=== PATIENT | female | born 1985 | race Caucasian/White ===

== ENCOUNTER 2017-06-12 17:39 | Emergency (ER) | payer BC, OTHER ==
--- NOTE | 2017-06-12 17:58 | PDOC ---
Rapid Medical Evaluation Time Seen by Provider: 06/12/17 17:55 Medical Evaluation: Allergies Allergy/AdvReac Type Severity Reaction Status Date / Time No Known Allergies Allergy Verified 02/08/13 08:58 06/12/17 17:56 32 year old female with IBS and anxiety/panic disorder presenting with dizziness /lightheadedness, nausea, headache, and diarrhea since morning. On letrozole for fertility (day #5). V/s unremarkable -Basic labs -To Main ED for further evaluation
[2017-06-12 17:59] VITALS: BP 142/94; PULSE 86; TEMP 98.2; BMI 41.1
[2017-06-12 19:03] LABS: BASO % 2.4 % (0-2.0); EOS % 0.8 % (0-4.5); HEMATOCRIT 34.8 % (32.4-45.2); LYMPH % 35.1 % (8-40); MCHC 31.7 g/dl (32.0-36.0); MEAN CELL VOLUME 59.2 fl (80-96); MEAN PLT VOLUME 9.6 fl (7.5-11.1); MONO % 5.3 % (3.8-10.2); NEUT % 56.4 % (42.8-82.8); PLATELET COUNT 418 K/MM3 (134-434); RBC 5.88 M/mm3 (3.60-5.2); RDW 18.2 % (11.6-15.6); WHITE BLOOD COUNT 11.1 K/mm3 (4.0-10.0)
[2017-06-12 19:04] LABS: MCH 18.8 pg (25.7-33.7)
[2017-06-12 19:07] LABS: URINE APPEARANCE CLEAR; URINE BILIRUBIN NEGATIVE (NEGATIVE); URINE BLOOD NEGATIVE (NEGATIVE); URINE COLOR LTYELLOW; URINE GLUCOSE (UA) NEGATIVE (NEGATIVE); URINE KETONE NEGATIVE (NEGATIVE); URINE NITRITE NEGATIVE (NEGATIVE); URINE PROTEIN NEGATIVE (NEGATIVE); URINE UROBILINOGEN NEGATIVE mg/dL (0.2-1.0)
[2017-06-12 19:16] LABS: URINE LEUK ESTERASE 1+ (NEGATIVE)
[2017-06-12 19:18] LABS: EPI CELLS RARE /HPF (FEW); URINE BACTERIA MANY /hpf (NONE SEEN); URINE MUCUS RARE
[2017-06-12 19:33] LABS: ALBUMIN 3.7 g/dl (3.4-5.0); ANION GAP 5 (8-16); BLOOD UREA NITROGEN 10 mg/dL (7-18); CALCIUM 9.1 mg/dL (8.5-10.1); CHLORIDE 104 mmol/L (98-107); CO2 30 mmol/L (21-32); CREATININE 0.7 mg/dL (0.55-1.02); GLUCOSE,RANDOM 96 mg/dL (74-106); MAGNESIUM 2.1 mg/dL (1.8-2.4); POTASSIUM 4.4 mmol/L (3.5-5.1); SGOT/AST 11 U/L (15-37); SGPT/ALT 21 U/L (12-78); SODIUM 139 mmol/L (136-145)
[2017-06-12 19:35] LABS: ALK PHOS 94 U/L (45-117); BILIRUBIN,TOTAL 0.3 mg/dL (0.2-1.0); TOT PROT 7.9 g/dl (6.4-8.2)
== END 2017-06-12 21:43 | disposition left against medical advice (07) ==
LOC: JER 17:39
DX: R51 Headache (principal); F41.0 Panic disorder [episodic paroxysmal anxiety]; F41.8 Other specified anxiety disorders; K58.9 Irritable bowel syndrome, unspecified
CPT/HCPCS: 36415; 80053; 81003; 81015; 83735; 84703; 85025; 99281-25

== ENCOUNTER 2022-04-26 18:33 | Inpatient (IN) | payer OTHER ==
[2022-04-26 18:42] VITALS: BMI 38.9
[2022-04-26] MEDS ORDERED: SODIUM CHLORIDE 0.9% 500 ML INFUS.BAG IV ONE (19:28)
[2022-04-26 20:13] LABS: HEMATOCRIT 38.1 % (32.4-45.2); HEMOGLOBIN 11.8 GM/dL (10.7-15.3); MEAN PLT VOLUME 9.8 fl (7.5-11.1); PLATELET COUNT 375 10^3/uL (134-434); RBC 6.05 M/mm3 (3.60-5.2); RDW 16.9 % (11.6-15.6)
[2022-04-26 20:19] LABS: MCH 19.5 pg (25.7-33.7)
[2022-04-26 20:20] LABS: ADD RBC MORPHOLOGY YES; INR 1.08 (0.83-1.09); PROTHROMBIN TIME (PATIENT) 12.4 SEC (9.7-13.0)
[2022-04-26] MEDS ORDERED: PIPERACILLIN/TAZOB 3.375 GM 3.375 GM in DEXTROSE 5%-WATER - 50 ML IVPB ONE ×2 (20:29→22:00)
[2022-04-26 20:42] LABS: ALBUMIN 3.5 g/dl (3.4-5.0); BLOOD UREA NITROGEN 10.6 mg/dL (7-18); CALCIUM 9.1 mg/dL (8.5-10.1)
[2022-04-26 20:46] LABS: ANISOCYTOSIS 2+; MACROCYTOSIS 0; OVALOCYTE 2+; PLATELET ESTIMATE NORMAL; TARGET CELLS 1+
[2022-04-26 20:47] LABS: BILIRUBIN,TOTAL 1.2 mg/dL (0.2-1); CREATININE 0.9 mg/dL (0.55-1.3); TOT PROT 6.8 g/dl (6.4-8.2)
[2022-04-26] MEDS ORDERED: PIPERACILLIN/TAZOB 3.375 GM 3.375 GM/50 ML BAG IVPB ONE (20:52)
[2022-04-26] MEDS ORDERED: VANCOMYCIN 1 GM in D5W (PRE-DOCKED) 1,000 MG/250 ML IVPB ONE (22:50)
[2022-04-26] MEDS ORDERED: predniSONE 20 MG TABLET (UD) PO ONE (22:56)
[2022-04-26] MEDS ORDERED: predniSONE 20 MG TABLET (UD) ONE (22:58)
[2022-04-27] MEDS ORDERED: PIPERACILLIN/TAZOB 3.375 GM 3.375 GM in DEXTROSE 5%-WATER - 50 ML IVPB SCH ×2 (02:00→15:30)
[2022-04-27] MEDS ORDERED: AMPICILLIN NA/SULBACTAM NA 3 GM in SODIUM CHLORIDE 100 ML IVPB SCH ×2 (03:00→09:17)
[2022-04-27 08:25] LABS: PH,URINE 8.5 (5.0-8.0); URINE APPEARANCE CLEAR; URINE BILIRUBIN NEGATIVE (NEGATIVE); URINE COLOR YELLOW; URINE GLUCOSE (UA) NEGATIVE (NEGATIVE); URINE KETONE NEGATIVE (NEGATIVE); URINE LEUK ESTERASE NEGATIVE (NEGATIVE); URINE NITRITE NEGATIVE (NEGATIVE); URINE PROTEIN NEGATIVE (NEGATIVE); URINE UROBILINOGEN 0.2 mg/dL (0.2-1.0)
[2022-04-27 09:48] LABS: BASO % 0.4 % (0-2.0); EOS % 0.3 % (0-4.5); HEMOGLOBIN 11.2 GM/dL (10.7-15.3); LYMPH % 12.7 % (8-40); MCHC 31.2 g/dl (32.0-36.0); MEAN CELL VOLUME 62.7 fl (80-96); MEAN PLT VOLUME 9.1 fl (7.5-11.1); MONO % 2.2 % (3.8-10.2); NEUT % 84.4 % (42.8-82.8); PLATELET COUNT 338 10^3/uL (134-434); RBC 5.74 M/mm3 (3.60-5.2); RDW 16.9 % (11.6-15.6); WHITE BLOOD COUNT 17.6 K/mm3 (4.0-10.0)
[2022-04-27 09:49] LABS: MCH 19.6 pg (25.7-33.7)
[2022-04-27 09:53] LABS: INR 1.09 (0.83-1.09); PROTHROMBIN TIME (PATIENT) 12.5 SEC (9.7-13.0)
[2022-04-27] MEDS: PANTOPRAZOLE 40 MG TABLET PO SCH (09:55)
[2022-04-27] MEDS: ENOXAPARIN NA (PORCINE) 40 MG/0.4 ML DISP.SYRIN SQ SCH (09:56)
[2022-04-27] MEDS ORDERED: MESALAMINE 800 MG TABLET.DR PO SCH (10:00)
[2022-04-27] MEDS ORDERED: BUDESONIDE RC SCH (10:00)
[2022-04-27 10:12] LABS: ALBUMIN 3.2 g/dl (3.4-5.0); CALCIUM 8.8 mg/dL (8.5-10.1)
[2022-04-27 10:14] LABS: PHOSPHOROUS 2.9 mg/dL (2.5-4.9)
[2022-04-27 10:16] LABS: BILIRUBIN,TOTAL 1.3 mg/dL (0.2-1); CREATININE 0.8 mg/dL (0.55-1.3); TOT PROT 6.2 g/dl (6.4-8.2)
[2022-04-27 14:59] VITALS: RESP 18
[2022-04-27] MEDS ORDERED: PIPERACILLIN/TAZOBACTAM 3.375 GM VIAL IVPB ONE (16:46)
[2022-04-27] MEDS ORDERED: predniSONE 20 MG TABLET (UD) PO ONE (17:08)
[2022-04-27] MEDS: PIPERACILLIN/TAZOB 3.375 GM 3.375 GM in DEXTROSE 5%-WATER - 50 ML IVPB SCH (17:21)
[2022-04-27] MEDS ORDERED: PIPERACILLIN/TAZOB 3.375 GM 3.375 GM in DEXTROSE 5%-WATER - 50 ML IVPB ONE (22:00)
[2022-04-28] MEDS: PIPERACILLIN/TAZOB 3.375 GM 3.375 GM in DEXTROSE 5%-WATER - 50 ML IVPB SCH ×2 (00:12→07:28)
[2022-04-28 05:32] VITALS: BP 120/65; PULSE 82; TEMP 97.3
[2022-04-28] MEDS ORDERED: predniSONE 10 MG TABLET (UD) PO ONE (06:00)
[2022-04-28 09:28] LABS: HEMATOCRIT 35.6 % (32.4-45.2); HEMOGLOBIN 11.1 GM/dL (10.7-15.3); MCHC 31.1 g/dl (32.0-36.0); MEAN CELL VOLUME 63.5 fl (80-96); MEAN PLT VOLUME 9.6 fl (7.5-11.1); PLATELET COUNT 348 10^3/uL (134-434); RBC 5.61 M/mm3 (3.60-5.2); WHITE BLOOD COUNT 14.1 K/mm3 (4.0-10.0)
[2022-04-28 09:29] LABS: MCH 19.7 pg (25.7-33.7)
[2022-04-28] MEDS ORDERED: predniSONE 10 MG TABLET (UD) PO SCH (10:00)
[2022-04-28] MEDS: PANTOPRAZOLE 40 MG TABLET PO SCH (10:30)
[2022-04-28] MEDS: ENOXAPARIN NA (PORCINE) 40 MG/0.4 ML DISP.SYRIN SQ SCH (10:34)
[2022-04-28 10:50] LABS: ALBUMIN 3.2 g/dl (3.4-5.0); BLOOD UREA NITROGEN 14.2 mg/dL (7-18)
[2022-04-28 10:52] LABS: CREATININE 0.8 mg/dL (0.55-1.3)
[2022-04-28 10:54] LABS: BILIRUBIN,TOTAL 0.7 mg/dL (0.2-1); TOT PROT 6.4 g/dl (6.4-8.2)
[2022-04-29] MEDS ORDERED: predniSONE 10 MG TABLET (UD) PO SCH (10:00)
== END 2022-04-28 14:36 | disposition home or self-care (01) | DRG 871 ==
LOC: JER 18:33 → JERBED 22:58 → OBSVTOIN 04-27 01:50 → J6S 04-27 03:32
PROVIDERS: ADMIT Internal Medicine; ATTEND Internal Medicine
DX: A41.9 Sepsis, unspecified organism (principal); J69.0 Pneumonitis due to inhalation of food and vomit; K51.90 Ulcerative colitis, unspecified, without complications; D56.1 Beta thalassemia; D72.829 Elevated white blood cell count, unspecified; E66.9 Obesity, unspecified; Z68.39 Body mass index [BMI] 39.0-39.9, adult
CPT/HCPCS: 0241U-QW; 36415; 71046-TC-FY; 80053; 81003; 83605; 83735; 84100; 85025; 85027; 85610; 86738; 87040; 87899; 93005; 93010; 99285-25; G0378